=== PATIENT | male | born 1965 | race Hispanic/Latino ===

== ENCOUNTER 2017-04-27 21:48 | Emergency (ER) | payer MEDICAID ==
[2017-04-27 21:48] VITALS: BMI 19.2
--- NOTE | 2017-04-27 22:49 | C.PDOC ---
History Of Present Illness 51 year old male, who has been homeless for around 1 month, presents to the ED with complaint of generalized weakness and request for a place to sleep for the night. Patient states he is originally from [place], [place] and has been in town for around 1 week. He states he took a bus to get here but states " I don't know why." He denies fever, chills, ear pain, chest pain, cough, shortness of breath , abdominal pain, nausea, vomiting, diarrhea, and has no other complaints at this time. Time Seen by Provider: 04/27/17 22:34 Chief Complaint (Nursing): Medical Clearance History Per: Patient History/Exam Limitations: no limitations Onset/Duration Of Symptoms: Hrs Current Symptoms Are (Timing): Still Present Additional History Per: Patient Past Medical History Reviewed: Historical Data, Nursing Documentation, Vital Signs Vital Signs: Last Vital Signs Temp 98.2 F 04/28/17 02:08 Pulse 93 H 04/28/17 02:08 Resp 22 04/28/17 02:08 BP 148/91 H 04/28/17 02:08 Pulse Ox 100 04/28/17 03:46 - Medical History PMH: Diabetes (type I), HTN Denies: Kidney Stones, Chronic Kidney Disease Surgical History: No Surg Hx Family History: States: Unknown Family Hx - Social History Hx Alcohol Use: Yes Hx Substance Use: No - Immunization History Hx Tetanus Toxoid Vaccination: No Hx Influenza Vaccination: No Hx Pneumococcal Vaccination: No Review Of Systems Constitutional: Positive for: Weakness. Negative for: Fever, Chills ENT: Negative for: Ear Pain Cardiovascular: Negative for: Chest Pain Respiratory: Negative for: Cough, Shortness of Breath Gastrointestinal: Negative for: Nausea, Vomiting, Abdominal Pain, Diarrhea Physical Exam - Physical Exam Appears: Non-toxic, No Acute Distress, Other (cachectic, no obvious signs of alcohol/drug use) Skin: Normal Color, Warm, Dry Head: Atraumatic, Normacephalic Eye(s): bilateral: Normal Inspection Oral Mucosa: Moist Neck: Supple Chest: Symmetrical, No Deformity, No Tenderness Cardiovascular: Rhythm Regular, No Murmur Respiratory: Normal Breath Sounds, No Rales, No Rhonchi, No Wheezing Extremity: Normal ROM, Capillary Refill (less than 2 seconds ) Neurological/Psych: Oriented x3, Normal Speech, Normal Cognition ED Course And Treatment - Laboratory Results Result Diagrams: 04/27/17 23:41 04/27/17 23:41 O2 Sat by Pulse Oximetry: 100 (on RA ) Pulse Ox Interpretation: Normal Medical Decision Making Medical Decision Making: Progress: Bloodwork and UA ordered and reviewed. CXR ordered and reviewed. Disposition - Disposition Referrals: [facility] [Outside] Disposition: HOME/ ROUTINE Disposition Time: 03:46 Condition: GOOD Prescriptions: Insulin Lispro [Humalog (Insulin Lispro)] 15 unit SQ DAILY #1 vial Instructions: Diabetic Hyperglycemia (ED) Forms: [employer] ([employer]awk) Print Language: ICELANDIC - Clinical Impression Clinical Impression: Hyperglycemia, Type 2 diabetes mellitus with hyperosmolar nonketotic hyperglycemia - Scribe Statement The provider has reviewed the documentation as recorded by the Scribe (Bridget Rios) Provider Attestation: All medical record entries made by the Scribe were at my direction and personally dictated by me. I have reviewed the chart and agree that the record accurately reflects my personal performance of the history, physical exam, medical decision making, and the department course for this patient. I have also personally directed, reviewed, and agree with the discharge instructions and disposition.
[2017-04-27 23:49] LABS: BASO # 0.1 K/uL (0.0-0.2); BASO % 1.7 % (0.0-2.0); EOS % 0.5 % (0.0-4.0); HEMOGLOBIN 12.7 g/dL (12.0-18.0); LYMPH # 1.1 K/uL (1.0-4.3); LYMPH % 21.9 % (20.0-40.0); MEAN CELL VOLUME 95.6 fL (80.0-94.0); MEAN CORPUSCULAR HEMOGLOBIN 32.4 pg (27.0-31.0); MEAN CORPUSCULAR HGB CONC 33.9 g/dL (33.0-37.0); MEAN PLATELET VOLUME 8.9 fL (7.2-11.7); MONO # 0.5 K/uL (0.0-0.8); MONO % 9.5 % (0.0-10.0); NEUT # 3.4 K/uL (1.8-7.0); NEUT % 66.4 % (50.0-75.0); RBC 3.92 Mil/uL (4.40-5.90); RED CELL DISTRIBUTION WIDTH 14.5 % (11.5-14.5); WHITE BLOOD COUNT 5.1 K/uL (4.8-10.8)
[2017-04-27 23:51] LABS: URINE BILIRUBIN NEGATIVE (NEGATIVE); URINE BLOOD 1+ (NEGATIVE); URINE CLARITY Clear (Clear); URINE COLOR Straw (YELLOW); URINE GLUCOSE (UA) 3+ mg/dL (Normal); URINE LEUKOCYTE ESTERASE NEG Leu/uL (Negative); URINE NITRATE NEGATIVE (NEGATIVE); URINE PROTEIN NEGATIVE (NEGATIVE); URINE UROBILINOGEN NORMAL mg/dL (0.2-1.0)
[2017-04-28 00:37] LABS: ALB/GLOB RATIO 1.4 (1.0-2.1); ALBUMIN 3.6 g/dL (3.5-5.0); ALT/SGPT 37 U/L (21-72); AST/SGOT 33 U/L (17-59); BLOOD UREA NITROGEN 18 mg/dL (9-20); CALCIUM 8.8 mg/dl (8.6-10.4); GFR AFRICAN-AMERICAN > 60; GFR NON-AFRICAN AMERICAN > 60; MAGNESIUM 1.8 mg/dL (1.6-2.3)
[2017-04-28] MEDS ORDERED: Sodium Chloride 0.9% 1,000 ML ONE (00:52)
[2017-04-28] MEDS ORDERED: (Novolin R) Insulin Human Regular 100 units/ml vial ONE ×2 (00:52→02:53)
[2017-04-28] MEDS ORDERED: (Novolin R) Insulin Human Regular 100 units/ml vial IV ONE ×2 (01:05→02:15)
[2017-04-28] MEDS ORDERED: Sodium Chloride 0.9% 1,000 ML IV ONE (01:05)
[2017-04-28 04:38] VITALS: BP 129/80; PULSE 96; RESP 18; TEMP 97.8
[2017-04-28 05:55] VITALS: O2SAT 100
--- NOTE | 2017-04-28 10:58 | RAD ---
HISTORY: SOB COMPARISON: None available. TECHNIQUE: Chest, one view. FINDINGS: LUNGS: Emphysematous changes. No focal consolidation. 6 mm nodular density at the level the 9th posterior right rib. Please note that chest x-ray has limited sensitivity for the detection of pulmonary masses. PLEURA: No significant pleural effusion identified. No definite pneumothorax . CARDIOVASCULAR: Heart size appears within normal limits. Atherosclerotic calcification of the aortic knob. OSSEOUS STRUCTURES: Extensive degenerative changes. Evidence of chronic appearing deformities of bilateral mid clavicles. Probable calcific tendonitis, left shoulder. VISUALIZED UPPER ABDOMEN: Unremarkable. OTHER FINDINGS: None. IMPRESSION: No focal consolidation identified. 6 mm nodular density at the level of the 9th posterior right rib. outpatient CT of the chest may be considered for further evaluation if indicated. Emphysematous changes. Study has been marked for PA review.
== END 2017-04-28 04:55 | disposition home or self-care (01) ==
LOC: C.ER 21:48
DX: E11.00 Type 2 diabetes mellitus with hyperosmolarity without nonketotic hyperglycemic-hyperosmolar coma (NKHHC) (principal); I10 Essential (primary) hypertension; Z59.0 Homelessness; Z79.4 Long term (current) use of insulin
CPT/HCPCS: 36415; 71045; 80053; 80320; 81001; 82948; 83735; 85025; 96374; 96376; 99284; J7040